=== PATIENT | male | born 1985 | race Caucasian/White ===

== ENCOUNTER 2020-06-12 09:01 | Outpatient (NON) | payer OTHER, SELFPAY ==
[2020-06-13 01:01] LABS: SARS-CoV-2 RNA PCR Negative
== END 2020-06-12 09:02 ==
PROVIDERS: PCP Family Medicine; Visit Provider Family Medicine
DX: R05 Cough (principal); Z20.828 Contact with and (suspected) exposure to other viral communicable diseases
CPT/HCPCS: 87635; C9803; U0003